=== PATIENT | male | born 1990 | race Hispanic/Latino ===

== ENCOUNTER 2023-08-08 14:04 | Emergency (ER) | payer OTHER ==
[~2023-08-08] VITALS: Ht 165.1 cm; Wt 68.0 kg
[2023-08-08 18:55] VITALS: BP 143/91; PULSE 88; RESP 16; O2SAT 100
[2023-08-08] MEDS ORDERED: LIDOCAINE HCL 1% 20 ML VIAL INJ SCH (20:30)
[2023-08-08] MEDS ORDERED: ACETAMINOPHEN 500 MG TABLET PO ONE (20:30)
[2023-08-08] MEDS ORDERED: CEPH500B PO (23:06)
[2023-08-08] MEDS ORDERED: IBUP-1493 PO (23:06)
[2023-08-08] MEDS ORDERED: DIPH,PERTUSS(ACELL),TET VAC/PF 0.5 ML VIAL IM ONE (23:30)
== END 2023-08-08 23:18 | disposition home or self-care (01) ==
LOC: EDH 14:04
DX: S01.81XA Laceration without foreign body of other part of head, initial encounter (principal); X58.XXXA Exposure to other specified factors, initial encounter; Y93.89 Activity, other specified; Y92.89 Other specified places as the place of occurrence of the external cause; Y99.8 Other external cause status
CPT/HCPCS: 12016; 70450; 70486; 72125